=== PATIENT | male | born 1960 | race Hispanic/Latino ===

== ENCOUNTER 2016-10-09 06:25 | Day surgery (SDC) | payer OTHER ==
[2016-10-05 09:24] VITALS: BMI 30.4
[2016-10-09] MEDS ORDERED: Propofol 10 mg/ml Inj (20 ML) ONE (07:09)
[2016-10-09] MEDS ORDERED: Midazolam 2 MG/2 ML VIAL ONE (07:09)
[2016-10-09] MEDS ORDERED: Lactated Ringer's 1,000 ML IV ONE ×2 (08:00→09:06)
[2016-10-09] MEDS ORDERED: ceFAZolin IV 2 gm in Dextrose 1 GM/50 ML BAG IVPB ONE (08:06)
[2016-10-09] MEDS ORDERED: ePHEDrine 50 mg/ml Inj ONE (08:47)
[2016-10-09] MEDS ORDERED: Rocuronium 10 mg/ml (5 ml) ONE (08:47)
[2016-10-09] MEDS ORDERED: Neostigmine Methylsulfate 3mg/3ml Syringe IV ONE (09:52)
[2016-10-09] MEDS ORDERED: Oxycodone/Acetaminophen 5/325 mg Tab PO PRN (10:21)
--- NOTE | 2016-10-09 10:26 | PCM.SURG1 ---
Surgeon's Initial Post Op Note - Surgeon's Notes Surgeon: Mariluz Olivas MD Operational Assistant: Benito Richmond PA-C, MD Type of Anesthesia: General Endo Anesthesia Administered By: Dr. Mclean Pre-Operative Diagnosis: Right distal radius fx malunion Operative Findings: tourniquet 85 min@ 250mmHg Post-Operative Diagnosis: same Operation Performed: Right distal radius osteotomy and open reduction internal fixation Specimen/Specimens Removed: none Estimated Blood Loss: EBL {In ML}: 1 Blood Products Given: N/A Drains Used: No Drains Post-Op Condition: Fair Date of Surgery/Procedure: 10/09/16 Time of Surgery/Procedure: 10:24 ([place] searched, patient with no CDS rx in last year. Patient counseled on narcotic use and interactions, as well as potential for dependence. Percocet #40 given.)
[2016-10-09] MEDS: HYDROmorphone 0.5 mg/0.5 ml ISec IVP PRN ×4 (10:33→11:40)
--- NOTE | 2016-10-09 10:51 | RAD ---
PROCEDURE: Right Wrist Radiographs. HISTORY: pt in pacu, s/p ORIF COMPARISON: None. FINDINGS: BONES: Limited examination. Bony detail obscured by overlying plaster splint/ cast. Patient is status post ORIF distal radial fracture. Plate and screw device seen along ventral aspect of distal radius. Fragments are in near anatomic alignment. No other fracture identified. Radiocarpal articulation appears intact. Normal carpal alignment is maintained. JOINTS: As above SOFT TISSUES: Normal. OTHER FINDINGS: None. IMPRESSION: Status post ORIF distal radial fracture.
[2016-10-09] MEDS ORDERED: HYDROmorphone 0.5 mg/0.5 ml ISec IVP PRN (12:18)
[2016-10-09] MEDS ORDERED: Bupivacaine HCl 0.5% PF (10 ml) Inj ONE ×2 (12:24→12:35)
--- NOTE | 2016-10-09 13:17 | OP ---
PROCEDURE DATE: 10/09/2016 SURGEON: Dheeraj Olivas M.D. EMPLOYMENT TRAINING SPECIALIST: 1. Dr. Hess. 2. RAJAN Valerio. PREOPERATIVE DIAGNOSES: 1. Right distal radius malunion. 2. Right carpal tunnel syndrome. POSTOPERATIVE DIAGNOSES: 1. Right distal radius malunion. 2. Right carpal tunnel syndrome. PROCEDURES: 1. Right distal radius osteotomy. 75587 2. Right distal radius open reduction internal fixation with volar wrist plate (skeletal dynamics). [id number] 3. Open carpal tunnel release. [id number] ANESTHESIA: General and postoperative upper extremity block. FLUIDS: 1000 mL. BLOOD LOSS: 0. COMPLICATIONS: None. SPECIMENS: None. DISPOSITION: Stable to recovery room. INDICATIONS: This is a 56-year-old male who had a malunited distal radius fracture with greater than 20 degrees dorsal tilt and loss of wrist flexion. The patient has failed conservative therapy and elected to proceed with the surgery. Risks of surgery were explained, included, but not limited to bleeding , infection, tendon, nerve or vessel injury, instability, chronic pain, malunion , nonunion, stiffness, potential need for additional surgery in the future. The patient understood the above risks and elected to proceed. DESCRIPTION OF PROCEDURE: The patient was taken to the operating room and placed supine on the operating room table. After adequate regional anesthesia, supplemental intravenous sedation was given. A well-padded nonsterile tourniquet was placed on the patient's upper extremity. The upper extremity was then prepped and draped in standard surgical fashion. The proposed incision was marked out with a sterile marking pen. This was a longitudinal incision along the course of the flexor carpi radialis tendon. Incision angled across the wrist flexion crease for the carpal tunnel release. A 2.5 cm incision was drawn out in line with the patient's third webspace between the thenar and hypothenar eminence. The arm was elevated and exsanguinated with an Esmarch bandage. Tourniquet was inflated to 250 mmHg and the Esmarch bandage was removed. Incision was made through skin only. All superficial veins were cauterized. Dissection was performed down to the superficial layer of the flexor carpi radialis sheath. It was incised along its radial most border to prevent injury to the palmar cutaneous nerve. The flexor carpi radialis tendon was retracted ulnarly. The floor of the flexor carpi radialis sheath was incised as well along its radial most border. Dissection was then carried down between the radial artery and the flexor pollicis longus. Any intervening small branches of the radial artery were cauterized. The pronator quadratus was then visualized. It was incised in an L-shaped fashion off its insertion on the radius. The fracture was then visualized and was displaced. The fracture was healed with malunion with a dorsal angulation of about 20 degrees. Dissection was carried down to the dorsum of the radius. The extensor compartments of the tendons were lifted off the bone and protected throughout the procedure with a retractor. X-rays again confirmed malunion with dorsal angulation of the distal radius. At this point, osteotomy site was selected at the metaphyseal/diaphyseal junction of the distal radius. Retractors were placed and protected both volar and dorsal soft tissue structures of the wrist. After this, using a sagittal power saw, an osteotomy was performed at the distal radius. Osteotomes were used to complete the osteotomy. After this, a small wedge of the anterior cortex was also excised to help with druze of volar tilt. We then selected an appropriate 4-hole volar wrist plate which was provisionally fixed at the distal fracture fragment. Fluoroscopy confirmed good alignment on AP and lateral of the distal fragment to the plate. Then, the distal holes of the plate were then filled with first compression screws followed by locking pegs. Once the distal fragment was reduced to the plate, the distal fragment with the plate was then reduced to the proximal fragment under fluoroscopy. A cortical compression screw was used in the oblong hole of the proximal plate. This restored the volar tilt of the fracture fragment. Ten degrees of volar tilt was obtained. Next, the rest of the screws were filled with cortical screws in the shaft of the radius. Again, fluoroscopy confirmed well-reduced, aligned distal radius on both AP and lateral films. There was no screw-pin entrance and reduction was anatomic. All screw lengths were noted to be of excellent length. The wound was irrigated with copious amounts of normal saline. The DRUJ was then assessed and it was stable. Full passive range of motion of the wrist was obtained with flexion to about 90 degrees was obtainable. The pronator quadratus was then repaired back to its anatomic insertion using 4-0 Vicryl sutures. The entire plate was covered with pronator quadratus muscles. Attention was then primarily directed to the carpal tunnel. A skin incision was made and all superficial veins were cauterized. In a sequential fashion, the subcutaneous tissue and the palmar fascia were incised just ulnar to the insertion of the palmaris longus tendon. The deep transverse carpal ligament was clearly exposed and was noted to be markedly fibrotic. With the scalpel, this ligament was completely excised as was the adjacent antebrachial fascia, thus thoroughly decompressing the contents of the carpal tunnel. The motor branch was identified and was noted to be intact and free of compression. The tourniquet was deflated. Hemostasis was obtained using bipolar cautery. The skin was closed using 4-0 nylon in vertical mattress fashion. Sterile dressing was placed consisting of fluffs, 4 x 4s, and a long arm thumb spica splint. The patient tolerated the procedure well and was brought to recovery room, alert, awake and in excellent condition. Dheeraj Olivas M.D. cc: [id number] TT: 10/09/2016 13:17:03 mick MORENO
--- NOTE | 2016-10-09 13:28 | PCM.ANESB1 ---
Interscalene Block - Brachial Plexus Date of Procedure: 10/09/16 Procedure Performed: Interscalene Block of Brachial Plexus Right - Procedure Interscalene Block of Brachial Plexus: This procedure was explained to the patient that it is for post-operative pain management. Consent was obtained after a thorough discussion with the patient regarding the benefits and possible complications of local anesthetic block of the Brachial Plexus at the supraclavicular area pre-operatively. The patient was brought to the PACU and standard monitors were applied. Time out was held with the circulating nurse to confirm the correct surgery and appropriate block. After applying Oxygen by nasal cannula and administering IV Sedation, the patient's head was gently rotated away from the RIGHT operative shoulder and the anterior scalene groove was carefully palpated. The ultrasound transducer was then applied to the skin in the transverse plane and the brachial plexus was visualized lateral to the supraclavicular artery After identification,the anterior lateral portion of the neck was prepped with Betadine solution three times and Lidocaine 1% was injected subcutaneously for topical analgesia. At this point, a # 22 gauge Stimuplex 2 inches insulated needle was inserted into the interscalene groove and directed in a caudal and midline direction. The needle was inserted lateral to the ultrasound transducer in-plane towards the brachial plexus in a [id number] direction. Needle advancement was performed carefully under direct ultrasound visualization. After repeated negative aspiration,__5_cc of____0.5 %bupivicaine__were injected and this was followed with __15_cc of____0.5 %bupivicaine___cc of _ Under ultrasound guidance the local anesthetics were observed surrounding the roots of the brachial plexus. The needle was removed intact and sterile dressing was applied. The patient had stable vital signs, was conscious and in no apparent distress. The patient tolerated the supraclavicular block of the bracheal plexus well with stable vital signs, no pain on injection, no complaints of paresthesias, tolerated procedure well with no complaints. .
[2016-10-09 15:30] VITALS: RESP 12; TEMP 97.6
[2016-10-09 16:07] VITALS: O2SAT 98
[2016-10-09 16:08] VITALS: BP 116/79; PULSE 79
== END 2016-10-09 15:10 | disposition home or self-care (01) ==
LOC: C.SDS 06:25
PROVIDERS: ATTEND Podiatrist Foot & Ankle Surgery
DX: S52.351 Displaced comminuted fracture of shaft of radius, right arm (principal); G56.02 Carpal tunnel syndrome, left upper limb
CPT/HCPCS: 25350; 25607; 64721; 73110; J0690; J1170; J2001; J2250; J2405; J2704; J2710; J3010; J7120